=== PATIENT | male | born 1930 | race Caucasian/White ===

== ENCOUNTER 2017-08-12 07:59 | Observation (INO) | payer MEDICARE ==
[~2017-08-12] VITALS: Ht 180.3 cm; Wt 76.7 kg
[~2017-08-12 07:59] MED LIST: ASPIR 8181 MG PO; ATENOLOL25 MG PO; ATORVASTATIN CA20 MG PO; BACTRIM 400-801 EACH PO; CLOPIDOGREL75 MG PO; DONEPEZIL HCL10 MG PO; FAMOTIDINE20 MG PO; FENOFIBRATE134 MG PO; FISH OIL 1,0001 EAC1; ISOSORBIDE MONO20 MG PO; LEVOTHYROXINE75 MCG PO; MACROBID 100 M100 MG PO; NITROSTAT0.4 MG PO; PANTOPRAZOLE SO40 MG PO; TRAZODONE HCL100 MG PO; ULTRAM50 MG PO
[2017-08-12 09:29] LABS: BASOPHILS % 0.4 % (0.0-1.0); EOSINOPHILS # (AUTO) 0.3 (0.0-0.4); EOSINOPHILS % 2.7 % (0.0-6.0); HEMOGLOBIN 8.4 g/dL (14.0-18.0); LYMPHOCYTES # (AUTO) 2.2 (1.0-3.2); LYMPHOCYTES % 23.5 % (18.0-39.1); MEAN CORPUSCULAR HEMOGLOBIN 29.1 pg (28-32); MEAN CORPUSCULAR HGB CONC 32.3 g/dL (31-35); MONOCYTES # (AUTO) 0.9 (0.2-0.8); MONOCYTES % 8.9 % (4.4-11.3); NEUTROPHILS # (AUTO) 6.1 (2.1-6.9); NEUTROPHILS % 64.2 % (38.7-80.0); PLATELET COUNT 337 x10e3/uL (140-360); RED BLOOD COUNT 2.89 x10e6/uL (4.3-5.7); RED CELL DISTRIBUTION WIDTH 14.5 % (11.7-14.4)
[2017-08-12 09:46] LABS: BLOOD UREA NITROGEN 10 mg/dL (7-26); BUN/CREATININE RATIO 10 (6-25); CALCIUM 8.4 mg/dL (8.4-10.2); CARBON DIOXIDE 26 mmol/L (22-29); CHLORIDE 106 mmol/L (98-107); CREATININE, SERUM 0.97 mg/dL (0.72-1.25); EST GLOMERULAR FILTRATION RATE > 60 ML/MIN (60-); GLUCOSE 98 mg/dL (74-118); SODIUM 142 mmol/L (136-145)
[2017-08-12] MEDS ORDERED: PANTOPRAZOLE 40 MG 10ML VIAL IV STA (10:36)
[2017-08-12] MEDS ORDERED: SODIUM CHLORIDE 0.9% 250ML 250 ML IV ONE (11:00)
[2017-08-12] MEDS ORDERED: PANTOPRAZOLE INJ 80 MG in SODIUM CHLORIDE 0.9% 100 ML IV SCH (11:45)
[2017-08-12] MEDS ORDERED: SODIUM CHLORIDE FLUSH 10 ML SYR INJ PRN (11:45)
[2017-08-12] MEDS: PANTOPRAZOL 40MG/SOD CHL 0.9% 50 ML IV SCH ×3 (12:11→22:45)
[2017-08-12 12:20] LABS: CREATINE KINASE MB 0.7 ng/mL (0-5.0)
[2017-08-12] MEDS: FLUCONAZOLE 100 MG TAB PO SCH (13:07)
[2017-08-12 14:04] VITALS: BP 160/80
[2017-08-12 16:33] VITALS: BP 198/86
[2017-08-12] MEDS: ISOSORBIDE MONONITRATE 20 MG TAB PO SCH (17:00)
--- NOTE | 2017-08-12 17:25 | History and Physical ---
PRIMARY CARE PHYSICIAN: Dr. Remington Paredes. CHIEF COMPLAINT: Bright red blood per rectum. HISTORY OF PRESENT ILLNESS: This is an 87-year-old man recently discharged from the hospital after he had bright red blood per rectum, now re-presenting with similar findings. Also had a rash on the buttock region. He is admitted for further evaluation and management. PAST MEDICAL HISTORY: Prediabetes, coronary artery disease status post 4 stents more than 10 years ago, severe hearing deficits, multiple TIAs, dementia, BPH, bladder cancer, hyperlipidemia, hypothyroidism, urinary tract infection, urinary retention. PAST SURGICAL HISTORY: TURP, coronary stents x4, hernia repair. ALLERGIES: PER THE ELECTRONIC MEDICAL RECORDS. FAMILY HISTORY/SOCIAL HISTORY: Patient is . He has 4 children. No alcohol or illicits. Quit cigarettes 40 years ago. MEDICATIONS: Per the electronic medical records. Medications reviewed. REVIEW OF SYSTEMS: Unreliable. VITAL SIGNS: Reviewed. PHYSICAL EXAMINATION GENERAL APPEARANCE: A tired-appearing man resting in bed. HEENT: Anicteric. Bitemporal wasting. CARDIOVASCULAR: Normal S1/S2. LUNGS: Moderate breath sounds. ABDOMEN: Soft, nontender, nondistended. : He has a rash in the buttock region extending to the groin region, erythematous, nontender, nonraised. EXTREMITIES: No edema or calf tenderness. NEUROLOGICALLY: Alert. He moves all extremities. He has some cognitive slowing. SKIN: Dry. PSYCHIATRIC: Flat affect. LABS: Reviewed. ASSESSMENT: An 87-year-old man. 1. Gastrointestinal bleed. 2. Prediabetes. 3. Hypertension. 4. Hypothyroidism. 5. Protein calorie malnutrition with bitemporal wasting. 6. Hyperlipidemia. 7. Normocytic anemia. PLAN 1. Will continue to hold aspirin and Plavix. He does not need Plavix anymore. His last stents were more than 10 years ago. 2. One unit red blood cell transfusion now. 3. Follow up H\T\H. 4. Follow up GI recommendations. 5. Patient had endoscopy recently without any findings of active bleeding. 6. Follow up counts and possible discharge later. He will need to follow up with GI service as outpatient and needs to completely avoid Plavix and aspirin use. Job#: [id number] EV
[2017-08-12] MEDS: HYDROCORTISONE ACETATE 25 MG/SUPP.RECT SUPP RC SCH (17:30)
[2017-08-12] MEDS: BALSAM PERU/CASTOR OIL 60 GM OINT...G. TP SCH (18:15)
[2017-08-12] MEDS: NIFEDIPINE CR 30 MG TAB PO SCH (18:23)
[2017-08-12] MEDS: NYSTATIN 15 GM POWDER UD BTL TOP SCH (18:23)
[2017-08-12 19:31] LABS: CREATINE KINASE MB 0.7 ng/mL (0-5.0)
[2017-08-12 20:04] VITALS: BP 198/93
--- NOTE | 2017-08-12 20:08 | Consultation ---
DATE OF CONSULTATION: August 12, 2017 HISTORY OF PRESENT ILLNESS: This is an 87-year-old known to me from previous admissions, who presented back to the hospital apparently because of a skin rash; however, he was found to have anemia again. His hemoglobin is dropped to hemoglobin of 8.9, which is dropped from last month when he was discharged about 2 weeks ago of 9.6. He denies any abdominal pain, nauseas, or vomiting at this point. PAST MEDICAL HISTORY: Significant for history of prediabetes, history of coronary artery disease status post stent placement long time ago, history of TIA, history of bladder cancer, history of hyperlipidemia, history of hypothyroidism, history of urinary tract infections. ALLERGIES: NONE. SOCIAL HISTORY: No alcohol use. FAMILY HISTORY: Noncontributory. REVIEW OF SYSTEMS: At this point, he denies any chest pain or shortness of breath. Denies any dysphagia or odynophagia. Denies any dysuria, hematuria, or syncopal episode. PHYSICAL EXAMINATION GENERAL: Patient is awake, alert, appears to be stable, and not in acute distress at this point. VITAL SIGNS: Afebrile currently with stable vital signs. HEENT: Normocephalic and atraumatic. Sclerae are anicteric. NECK: Supple. CARDIAC: Regular. LUNGS: Clear. ABDOMEN: Soft, nondistended, nontender. EXTREMITIES: No cyanosis, no clubbing. LAB VALUES: Significant for WBC of 9.5, hemoglobin 8.4, hematocrit 26. BMP appears to be normal. IMPRESSION 1. Anemia. At this point, there are no signs of active bleeding. He did have a colonoscopy a couple of weeks or so ago. 2. History of heart disease. RECOMMENDATIONS: Continue on current care at this point. Follow labs. Transfused with packed red blood cells. We will consider upper endoscopy. Job#: [id number] ROSA ELENA cc:Dr. Michael Paredes
[2017-08-12] MEDS ORDERED: NIFEDIPINE CR 30 MG TAB PO SCH (21:00)
[2017-08-12] MEDS ORDERED: LABETALOL HCL 5 MG/ML 20ML VIAL IV NR (21:53)
[2017-08-12] MEDS: ATORVASTATIN 20 MG TAB PO SCH (22:00)
[2017-08-12] MEDS: TRAZODONE HCL 50 MG TAB PO SCH (22:04)
[2017-08-12] MEDS: HYDRALAZINE HCL 25 MG TAB PO SCH (22:05)
[2017-08-13] VITALS (8 sets, daily range): BP systolic 129–156; BP diastolic 58–74
[2017-08-13] MEDS: PANTOPRAZOL 40MG/SOD CHL 0.9% 50 ML IV SCH ×5 (02:00→22:40)
[2017-08-13 04:32] LABS: CREATINE KINASE MB 0.9 ng/mL (0-5.0)
[2017-08-13 05:18] LABS: BASOPHILS # (AUTO) 0.1 (0.0-0.1); BASOPHILS % 0.6 % (0.0-1.0); EOSINOPHILS # (AUTO) 0.3 (0.0-0.4); EOSINOPHILS % 3.6 % (0.0-6.0); HEMOGLOBIN 10.2 g/dL (14.0-18.0); LYMPHOCYTES # (AUTO) 2.2 (1.0-3.2); LYMPHOCYTES % 25.2 % (18.0-39.1); MEAN CORPUSCULAR HEMOGLOBIN 28.4 pg (28-32); MEAN CORPUSCULAR HGB CONC 32.9 g/dL (31-35); MEAN CORPUSCULAR VOLUME 86.4 fL (81-99); MONOCYTES # (AUTO) 0.8 (0.2-0.8); MONOCYTES % 9.1 % (4.4-11.3); NEUTROPHILS # (AUTO) 5.3 (2.1-6.9); NEUTROPHILS % 61.3 % (38.7-80.0); PLATELET COUNT 307 x10e3/uL (140-360); RED BLOOD COUNT 3.59 x10e6/uL (4.3-5.7); RED CELL DISTRIBUTION WIDTH 15.4 % (11.7-14.4)
[2017-08-13 05:30] LABS: INR 1.24; PARTIAL THROMBOPLASTIN TIME 30.9 seconds (23.8-35.5); PROTHROMBIN TIME 14.7 seconds (11.9-14.5)
[2017-08-13 05:38] LABS: ANION GAP 13.6 mmol/L (8-16); BLOOD UREA NITROGEN 8 mg/dL (7-26); BUN/CREATININE RATIO 9 (6-25); CALCIUM 8.5 mg/dL (8.4-10.2); CARBON DIOXIDE 25 mmol/L (22-29); CHLORIDE 106 mmol/L (98-107); EST GLOMERULAR FILTRATION RATE > 60 ML/MIN (60-); GLUCOSE 96 mg/dL (74-118); POTASSIUM 3.6 mmol/L (3.5-5.1); SODIUM 141 mmol/L (136-145)
[2017-08-13] MEDS: NIFEDIPINE CR 30 MG TAB PO SCH ×2 (06:00→18:00)
[2017-08-13] MEDS: HYDRALAZINE HCL 25 MG TAB PO SCH ×2 (06:02→16:20)
[2017-08-13] MEDS: BALSAM PERU/CASTOR OIL 60 GM OINT...G. TP SCH ×2 (08:15→17:20)
[2017-08-13] MEDS: NYSTATIN 15 GM POWDER UD BTL TOP SCH ×2 (08:15→17:19)
[2017-08-13] MEDS: ISOSORBIDE MONONITRATE 20 MG TAB PO SCH ×2 (08:15→17:19)
[2017-08-13] MEDS: HYDROCORTISONE ACETATE 25 MG/SUPP.RECT SUPP RC SCH ×2 (08:15→17:19)
[2017-08-13] MEDS: FLUCONAZOLE 100 MG TAB PO SCH (08:15)
[2017-08-13] MEDS: LEVOTHYROXINE SODIUM 75 MCG TAB PO SCH (08:15)
--- NOTE | 2017-08-13 13:24 | Progress Note ---
DATE: August 13, 2017 TIME: 12:40 OVERNIGHT: No acute events. REVIEW OF SYSTEMS: Unreliable. PHYSICAL EXAMINATION VITAL SIGNS: T 96.6, P 58, R 20, BP 130/60, SpO2 97 on room air. GENERAL: This is a very tired, frail appearing man resting supine in bed. HEENT: Bitemporal wasting noted without sinus tenderness. Nares parent. Trachea midline. Oral mucosa dry and intact and pale. CV: S1 and S2 auscultated without clicks, murmurs or rubs. LUNGS: Moderate breath sounds in all sainz with fair excursion. ABDOMEN: Soft and slightly tender in the right upper quadrant. Nondistended. : Erythematous rash noted to buttocks and to groin. No tenderness noted. Area not raised. EXTREMITIES: No edema or calf tenderness. NEUROLOGIC: Alert. Moves all 4 extremities on command. Some difficulty comprehending and expressing commands as manifested by delay. SKIN: Dry. PSYCHIATRIC: Flat affect. LABS: Sodium 141, potassium 3.6, chloride 106, CO2 25, gap 13.6, BUN 8, creatinine 0.9, GFR greater than 60. Cardiac enzymes negative. WBC is 8.64, H and H 10.2 and 31, and platelets 307,000. PT is 14.7 on aspirin. MEDICATIONS 1. Protonix drip. 2. Anusol suppositories b.i.d. 3. Synthroid 75 mcg p.o. daily. 4. Isosorbide 20 mg p.o. b.i.d. 5. Nystatin cream topically b.i.d. 6. P.o. fluconazole daily. 7. Q.8 h. hydralazine. 8. P.o. at night trazodone. 9. Lipitor at night 20 mg. 10. Procardia q.12 h. 30 mg. ASSESSMENT AND PLAN: This is an 87-year-old man with: 1. Gastrointestinal bleed: Will continue holding Plavix and aspirin. Cardiovascular stents placed greater than 10 years ago. Continue with Protonix infusion. Follow up H and H after transfusion as above. Follow a.m. values. 2. Prediabetes. 3. Hypertension: Medications titrated with episodic hypertension times 1 yesterday. Controlled today. 4. Hypothyroidism: Synthroid. 5. Protein calorie malnutrition with bitemporal wasting: Supplementation. 6. Hyperlipidemia: Statin. 7. Normocytic anemia: Status post transfusion. 8. Prophylaxis: Sequential compression devices. 9. Disposition: Will follow up counts. Gastroenterology consult noted with esophagogastroduodenoscopy pending on Tuesday. DICTATED BY BREANA DE LA CRUZ NP Job#: [id number] RI
[2017-08-13] MEDS: ATORVASTATIN 20 MG TAB PO SCH (21:20)
[2017-08-13] MEDS: TRAZODONE HCL 50 MG TAB PO SCH (21:20)
[2017-08-14] VITALS (8 sets, daily range): BP systolic 126–149; BP diastolic 61–71
[2017-08-14] MEDS: HYDRALAZINE HCL 25 MG TAB PO SCH ×4 (00:41→21:59)
[2017-08-14] MEDS: PANTOPRAZOL 40MG/SOD CHL 0.9% 50 ML IV SCH ×4 (03:35→18:45)
[2017-08-14 05:48] LABS: BASOPHILS % 0.4 % (0.0-1.0); EOSINOPHILS # (AUTO) 0.3 (0.0-0.4); EOSINOPHILS % 2.4 % (0.0-6.0); HEMOGLOBIN 10.7 g/dL (14.0-18.0); LYMPHOCYTES # (AUTO) 1.5 (1.0-3.2); LYMPHOCYTES % 13.4 % (18.0-39.1); MEAN CORPUSCULAR HEMOGLOBIN 28.5 pg (28-32); MEAN CORPUSCULAR HGB CONC 32.4 g/dL (31-35); MEAN CORPUSCULAR VOLUME 87.8 fL (81-99); MONOCYTES # (AUTO) 0.9 (0.2-0.8); MONOCYTES % 8.2 % (4.4-11.3); NEUTROPHILS # (AUTO) 8.5 (2.1-6.9); NEUTROPHILS % 75.2 % (38.7-80.0); PLATELET COUNT 316 x10e3/uL (140-360); RED BLOOD COUNT 3.76 x10e6/uL (4.3-5.7); RED CELL DISTRIBUTION WIDTH 15.3 % (11.7-14.4)
[2017-08-14] MEDS: NIFEDIPINE CR 30 MG TAB PO SCH ×2 (05:48→17:58)
[2017-08-14] MEDS: FLUCONAZOLE 100 MG TAB PO SCH (08:16)
[2017-08-14] MEDS: HYDROCORTISONE ACETATE 25 MG/SUPP.RECT SUPP RC SCH ×2 (08:16→16:50)
[2017-08-14] MEDS: LEVOTHYROXINE SODIUM 75 MCG TAB PO SCH (08:16)
[2017-08-14] MEDS: ISOSORBIDE MONONITRATE 20 MG TAB PO SCH ×2 (08:16→16:50)
[2017-08-14] MEDS: BALSAM PERU/CASTOR OIL 60 GM OINT...G. TP SCH ×2 (08:20→17:58)
[2017-08-14] MEDS: NYSTATIN 15 GM POWDER UD BTL TOP SCH ×2 (08:20→16:50)
[2017-08-14] MEDS: ATORVASTATIN 20 MG TAB PO SCH (21:59)
[2017-08-14] MEDS: TRAZODONE HCL 50 MG TAB PO SCH (21:59)
[2017-08-15] VITALS (7 sets, daily range): BP systolic 120–147; BP diastolic 60–73
[2017-08-15] MEDS: PANTOPRAZOL 40MG/SOD CHL 0.9% 50 ML IV SCH ×3 (00:32→13:49)
[2017-08-15 05:41] LABS: BASOPHILS % 0.3 % (0.0-1.0); EOSINOPHILS # (AUTO) 0.1 (0.0-0.4); EOSINOPHILS % 1.1 % (0.0-6.0); HEMOGLOBIN 10.9 g/dL (14.0-18.0); LYMPHOCYTES # (AUTO) 1.3 (1.0-3.2); LYMPHOCYTES % 10.8 % (18.0-39.1); MEAN CORPUSCULAR HEMOGLOBIN 29.1 pg (28-32); MONOCYTES # (AUTO) 1.1 (0.2-0.8); NEUTROPHILS # (AUTO) 9.3 (2.1-6.9); NEUTROPHILS % 78.3 % (38.7-80.0); PLATELET COUNT 291 x10e3/uL (140-360); RED BLOOD COUNT 3.75 x10e6/uL (4.3-5.7); RED CELL DISTRIBUTION WIDTH 15.4 % (11.7-14.4)
[2017-08-15] MEDS: HYDRALAZINE HCL 25 MG TAB PO SCH ×2 (06:00→14:48)
[2017-08-15] MEDS: NIFEDIPINE CR 30 MG TAB PO SCH (06:00)
[2017-08-15 06:09] LABS: ANION GAP 13.4 mmol/L (8-16); BLOOD UREA NITROGEN 13 mg/dL (7-26); BUN/CREATININE RATIO 15 (6-25); CALCIUM 8.5 mg/dL (8.4-10.2); CARBON DIOXIDE 22 mmol/L (22-29); CHLORIDE 108 mmol/L (98-107); CREATININE, SERUM 0.84 mg/dL (0.72-1.25); EST GLOMERULAR FILTRATION RATE > 60 ML/MIN (60-); GLUCOSE 119 mg/dL (74-118); POTASSIUM 3.4 mmol/L (3.5-5.1); SODIUM 140 mmol/L (136-145)
[2017-08-15] MEDS ORDERED: EPINEPHRINE HCL INJ 1 MG/ML AMP ONE (08:16)
[2017-08-15] MEDS ORDERED: HYDRALAZINE HCL25 MG PO (09:16)
[2017-08-15] MEDS ORDERED: NYAMYC15 GM TOP (09:16)
[2017-08-15] MEDS ORDERED: DIFLUCAN100 MG PO (09:16)
[2017-08-15] MEDS ORDERED: ANUCORT-HC25 MG RC (09:16)
[2017-08-15] MEDS ORDERED: NIFEDIPINE ER30 M1 PO (09:16)
--- NOTE | 2017-08-15 10:01 | Progress Note ---
DATE: August 14, 2017 TIME: 7:30 p.m. OVERNIGHT: No events. REVIEW OF SYSTEMS: Unreliable. PHYSICAL EXAMINATION VITAL SIGNS: Reviewed. GENERAL: A tired-appearing man resting in bed. HEENT: Anicteric. CARDIOVASCULAR: Normal S1 and S2. LUNGS: Moderate breath sounds. ABDOMEN: Soft and nontender. EXTREMITIES: There is no edema. SKIN: Dry. PSYCHIATRIC: Flat affect. LABS: Reviewed. MEDICATIONS: Reviewed. ASSESSMENT: An 87-year-old male with 1. Gastrointestinal bleed. 2. Prediabetes. 3. Hypertension. 4. Hypothyroidism. 5. Protein calorie malnutrition with bitemporal wasting. 6. Hyperlipidemia. 7. Normocytic anemia. PLAN 1. Follow up endoscopy. 2. Continue to hold Plavix. 3. Patient needs to remain off of Plavix and aspirin once he is discharged home. 4. Discharge planning after endoscopy. Job#: [id number]
[2017-08-15] MEDS: FLUCONAZOLE 100 MG TAB PO SCH (10:20)
[2017-08-15] MEDS: NYSTATIN 15 GM POWDER UD BTL TOP SCH (10:20)
[2017-08-15] MEDS: LEVOTHYROXINE SODIUM 75 MCG TAB PO SCH (10:20)
[2017-08-15] MEDS: HYDROCORTISONE ACETATE 25 MG/SUPP.RECT SUPP RC SCH (10:20)
[2017-08-15] MEDS: BALSAM PERU/CASTOR OIL 60 GM OINT...G. TP SCH (10:20)
[2017-08-15] MEDS: ISOSORBIDE MONONITRATE 20 MG TAB PO SCH (10:21)
--- NOTE | 2017-08-15 15:54 | Discharge Summary ---
PRINCIPAL DIAGNOSES 1. Gastrointestinal bleed. 2. Hiatal hernia. 3. Prediabetes. 4. Hypertension. 5. Protein calorie malnutrition with bitemporal wasting. 6. Hyperlipidemia. 7. Fungal groin infection. 8. Normocytic anemia. SECONDARY DIAGNOSIS: Hypertension. CHIEF COMPLAINT: GI bleed. HISTORY OF PRESENT ILLNESS: This is an 87-year-old man with GI bleed. Refer to the H and P for further details. HOSPITAL COURSE: The patient underwent endoscopy that showed hiatal hernia, possible etiology of his GI bleeding. His symptoms have resolved. His hemoglobin is stable. The patient has a fungal groin infection and was started on fluconazole and topical nystatin. He has protein-calorie malnutrition with bitemporal wasting. He continued on nutritional support. He needs assistance with home health services to avoid taking aspirin and Plavix at home. The patient does have some degree of dementia. He is currently appropriate for discharge with followup. DISCHARGE MEDICATIONS: Per electronic medical record and include fluconazole and nystatin topically. FOLLOWUP 1. With primary care doctor in [address] Patel in 2 weeks. MIGUEL SCHMID MD Job#: [id number]
[2017-08-15] MEDS ORDERED: PROPOFOL IV EMULSION 10 MG/ML 20 ML VIAL ONE (17:24)
[2017-08-15] MEDS ORDERED: LIDOCAINE HCL 2% LOCAL INJ 5 ML SDV VIAL INJ ONE (17:24)
[2017-08-16] MEDS ORDERED: LEVOTHYROXINE SODIUM 75 MCG TAB PO SCH (06:00)
== END 2017-08-15 17:16 | disposition home or self-care (01) ==
LOC: ER 07:59 → ERHOLD 12:01 → INTOOBSV 12:01 → MED/SURG3 13:28
PROVIDERS: ADMIT Internal Medicine; ATTEND Internal Medicine
DX: K29.70 Gastritis, unspecified, without bleeding (principal); B35.6 Tinea cruris; R73.03 Prediabetes; I10 Essential (primary) hypertension; E03.9 Hypothyroidism, unspecified; E46 Unspecified protein-calorie malnutrition; E78.5 Hyperlipidemia, unspecified; D64.9 Anemia, unspecified; R21 Rash and other nonspecific skin eruption; I25.10 Atherosclerotic heart disease of native coronary artery without angina pectoris; Z95.5 Presence of coronary angioplasty implant and graft; Z86.73 Personal history of transient ischemic attack (TIA), and cerebral infarction without residual deficits; K44.9 Diaphragmatic hernia without obstruction or gangrene; F03.90 Unspecified dementia, unspecified severity, without behavioral disturbance, psychotic disturbance, mood disturbance, and anxiety
CPT/HCPCS: 36415 ×4; 36430; 43239; 80048 ×3; 82550 ×2; 82553 ×2; 84484 ×2; 85025 ×4; 85610; 85730; 86850; 86900; 86920; 87102; 87206; 88305; 88312; 93005; 99285; G0378 ×4; J2001; J7050; P9016; J0171